=== PATIENT | female | born 1970 | race Caucasian/White ===

== ENCOUNTER 2017-01-14 20:53 | Emergency (ER) | payer OTHER ==
[~2017-01-14 20:53] MED LIST: ADVAIR 250-501 EACH IH; ALBUTEROL17 G1 IH; CIPRO250 MG PO; COREG PO; COREG3.125 MG PO; CREON DR 12,001 EAC1 PO; DESYREL100 MG PO; KLONOPIN1 MG PO; LISINOPRIL10 MG PO; LORTAB 5/500 TA1 TA1 PO; MAG-OX 400400 MG PO; METHADONE HCL10 MG PO; PRILOSEC40 MG PO; PROZAC40 MG PO; SINGULAIR PO; WELLBUTRIN100 MG PO; ZYRTEC10 M2 PO
== END 2017-01-15 02:27 | disposition left against medical advice (07) ==
LOC: CFTX 20:53 → CED 20:53
DX: Z53.21 Procedure and treatment not carried out due to patient leaving prior to being seen by health care provider (principal)